=== PATIENT | female | born 1950 | race Caucasian/White ===

== ENCOUNTER 2019-02-27 06:06 | Inpatient (IN) | payer OTHER, SELFPAY ==
[2019-02-13 09:48] VITALS: BMI 23.3
[2019-02-27] VITALS (14 sets, daily range): BP systolic 86–152; BP diastolic 49–91; PULSE 68–92; RESP 12–18; TEMP 36.2–36.8; O2SAT 94–100; BMI 22.2
--- NOTE | 2019-02-27 06:00 | DI.RAD.S_ITS ---
PROCEDURE: XR PELVIS 1-2V INDICATIONS: post op right SIENNA TECHNIQUE: Single frontal view of the pelvis acquired. COMPARISON: [facility], CR, XR PELVIS WITH LATERAL HIP RIGHT, 01/24/2019, 10:29. FINDINGS: Bones: No fractures or dislocations. No suspicious bony lesions. Normal alignment immediately after right total hip arthroplasty. Soft tissues: Visualized bowel gas pattern is normal. No suspicious soft tissue calcifications. IMPRESSION: Normal alignment established after right total hip arthroplasty during surgical procedure earlier same day. Dictated by: Clyde Hernandez M.D. on 02/27/2019 at 11:03 Approved by: Clyde Hernandez M.D. on 02/27/2019 at 11:04
[2019-02-27] MEDS: ACETAMINOPHEN 325 MG TABLET 975 MG PO ×3 (06:48→20:53)
[2019-02-27] MEDS: PREGABALIN 75 MG CAPSULE PO (06:49)
[2019-02-27] MEDS: LACTATED RINGERS 1,000 ML 42 ML IV (07:00)
[2019-02-27] MEDS: CEFAZOLIN 1 GM VIAL IV (07:45)
--- NOTE | 2019-02-27 07:47 | PM.PREOP ---
Pre-operative Note Interval Note History & Physical reviewed/Exam performed by Physician: Yes Changes to H&P: No
--- NOTE | 2019-02-27 08:28 | SUR.OPER ---
Head on pillow. Supine on Angela table with both legs secured in traction leg positioners. Arms on padded arm boards with <90 abduction. Padded crotch post in place.
[2019-02-27] MEDS: ROPIVACAINE 0.5% PF 5 MG/ML 20ML AMP 60 ML INJ (08:35)
[2019-02-27] MEDS: MORPHINE 4 MG/ML INJ INJ (08:35)
[2019-02-27] MEDS: KETOROLAC 30 MG/ML VIAL IV (08:35)
[2019-02-27] MEDS: TRANEXAMIC ACID 1,000 MG VIAL 2000 MG INJ ×2 (08:37→09:30)
--- NOTE | 2019-02-27 08:43 | SUR.OPER ---
Patient's toes of both feet checked intermittently throughout surgery for capillary refill. Less than 1 second refill each time checked of both feet.
--- NOTE | 2019-02-27 10:01 | PM.OP.1 ---
Operative Date/Time/Diagnoses Date of procedure: 02/27/19 Time of procedure: 10:01 Pre-op diagnosis: Right hip degenerative joint disease Post-op diagnosis: same Procedure & Clinicians Procedure: Right total hip arthroplasty, direct anterior approach (CPT code 92472 with nursing assistants teacher) Same procedure as scheduled: Yes Indications: Patient is an 68-year-old female with severe right hip DJD. The patient has pain with activities and at rest, limited ambulation and activity tolerance, difficulties with ADLs, and failure of conservative treatment. We have discussed the nature of condition, treatment options, risks and benefits, and patient elects to proceed with total hip arthroplasty via direct anterior approach and gives informed consent. Surgeon: Robert Lin Ground Crew Supervisor: Janine Leo Anesthesia Type: General and Spinal Operative Notes Closure Type: primary Specimen(s): none sent Prosthetic devices, grafts, tissues, transplants, or devices: Acetabulum: Nails and Nephew R3 acetabular component size 52 mm Femoral component: Nails and Nephew Anthology stem size 8 with standard offset Femoral head: 36 mm + 4 Oxinium Estimated Blood Loss (mL): 250 Blood products transfused: none Procedure in detail: Patient brought to the operating room and after satisfactory induction of anesthetic and administration of IV antibiotics 1st dose of tranexamic acid was also administered intravenously. Patient placed supine on the [place] table with all bony prominences well padded and both feet secured in the ski boots. Right hip and lower extremity prepped and draped in the usual sterile fashion. Longitudinal incision created beginning just distal and lateral to the ASIS. This was carried sharply through the skin and subcutaneous tissues down to the fascia which was then divided longitudinally and the TFL muscle stripped off of the fascia and retracted posteriorly. Intermuscular gap then developed and a retractor placed over the superior capsule and a Gelpi retractor was placed distally. Circumflex vessels identified and cauterized. Then the pericapsular fat was removed. Capsulotomy was then performed in the anterior capsule was retracted anteriorly, lateral capsule was excised. Retractors then placed intracapsularly and femoral neck cut made according per preoperative templating using fluoroscopic guidance. Acetabular retractors were then placed an acetabular labrum and osteophytes were excised. Sequential reaming of the acetabulum was performed to 51 mm with an excellent circumferential ream and there was an excellent fit with the trial. Position and fit of the trial component was confirmed with fluoroscopic images and once determined satisfactory the trial was removed and a permanent 52 mm Nails and Nephew R3 acetabular component was selected inserted and impacted into position with position confirmed satisfactory on fluoroscopy. Permanent liner then inserted. The leg was then externally rotated extended and abducted. Retractors placed around the proximal femur and the lateral capsule was excised and a posterosuperior release was performed. Canal was entered with a box osteotome and sequential broaches. Position of the broaches was confirmed satisfactory with AP and lateral fluoroscopic images. Canal was broached to size 8 with an excellent and snug fit with the [address] so trial reduction performed with the 8 broach used a good leg length range of motion and stability characteristics, however on fluoroscopic images the leg appeared slightly short and there was slight anterior push-pull with the bone hook at about 60? of external rotation. Trial and broach were then removed and a size 8 Nails and Nephew anthology stem was selected inserted and impacted into position. Trial reduction with a +4 ball yielded excellent leg length confirmed fluoroscopically and there was excellent stability with anterior push-pull with the bone hook at 90? of external rotation. The trial ball was exchanged for a +436 mm Oxinium ball. The wound was irrigated and hip reduced. Final fluoroscopic images confirmed satisfactory and excellent placement of hardware leg length and stability was also checked with the bone hook which was excellent. The wound was irrigated and the fascia was closed with a running 1. Vicryl. Periarticular tissues were infiltrated with combination of ropivacaine, morphine and Toradol. Subcutaneous tissues closed with 3 O Vicryl and a running intracuticular locking stitch. Skin closed with skin adhesive and sterile dressings applied. Second dose of tranexamic acid was administered. Patient taken to postanesthetic recovery in satisfactory condition. Complications: none Condition: stable Disposition: PACU Plan for aftercare: Patient will be admitted to the acute care capellan, and anticipate discharge on postop day 1 with follow-up in office in 10-14 days. Outpatient physical therapy will be arranged and patient will increase activity as tolerated. Patient will continue use of postoperative Lovenox for 10 days postop.
[2019-02-27] MEDS: ONDANSETRON 4 MG/2 ML INJ IV ×2 (10:55→15:28)
[2019-02-27] MEDS: LACTATED RINGERS 1,000 ML 125 ML IV ×2 (10:55→19:17)
--- NOTE | 2019-02-27 11:27 | PC.NURSE ---
Addendum entered by Anca Gavin R.N. 02/27/19 14:27: pt with no further nausea- taking crackers and tea for c/o lightheadedness has declined PT X 1 due to this and will revisit later this afternoon- no void as of yet post-operative Original Note: RECEIVED PT FROM PACU - WITH SOME NAUSEA AND DRY HEAVES- 2 SMALL EMESIS OF MOSTLY MUCOUS-SPUTUM, MEDICATED WITH IV ZOFRAN WHICH HAS BEEN EFFECTIVE THUS FAR- ANTERIOR RIGHT HIP WITH AQUACELL DRESSING WHICH REMAINS C,D,I. SCD PLACED BILAT LOWER EXTREMITIES AND UPDATED SPOUSE AT BEDSIDE-
--- NOTE | 2019-02-27 13:09 | PT.IPTN ---
Current Diagnoses Unilateral primary osteoarthritis, right hip (02/27/19) Surgery Performed Operation Date: 02/27/19 07:45 Actual Procedures p Total Hip Athroplasty Anterior(Right) - Robert Lin MD Physical Therapy Treatment Note Notes RN requesting pt have another hour or so of rest before attempting mobilization.
--- NOTE | 2019-02-27 14:26 | PT.IPTN ---
Current Diagnoses Unilateral primary osteoarthritis, right hip (02/27/19) Surgery Performed Operation Date: 02/27/19 07:45 Actual Procedures p Total Hip Athroplasty Anterior(Right) - Robert Lin MD Physical Therapy Treatment Note Notes Pt just woke up but is feeling dizzy and nauseous. BP 107/64 in supine. Pt prefering to wait to mobilize. RN to get pt some crackers and tea. PT to check back.
[2019-02-27] MEDS: CEFAZOLIN 2 GM/100 ML FROZ.PIGGY IV (14:50)
[2019-02-27] MEDS: hydrOXYzine pamoate 25 MG CAPSULE PO (16:54)
--- NOTE | 2019-02-27 17:45 | PT.IIE ---
Current Diagnoses Unilateral primary osteoarthritis, right hip (02/27/19) Surgery Performed Operation Date: 02/27/19 07:45 Actual Procedures p Total Hip Athroplasty Anterior(Right) - Robert Lin MD Surgical History Status post hysterectomy Physical Therapy Inpatient Evaluation/Re-Eval M1 PT/OT-IP Prior Functional Status Start: 02/27/19 11:01 Freq: NEEDED Status: Active Protocol: Document 02/27/19 17:41 EA (Rec: 02/27/19 17:52 EA [id number]) Medical Review Prior Functional Status Medical History Reviewed Yes Diet/Fluid Consistency Regular Communication Normal Mobility and Gait Indep with the used of ST cane ; denies fall in the past 6 months Activities of Daily Living and IADL's Indep Social History Household Members spouse Living Arrangements House Number of Floors (Floors) One Floor Number of Stairs To Enter/Railing? 2 stes to go down to the main floor Home Equipment Front Wheel Walker Straight Cane Raised Toilet Seat w/Armrests Employment Status Retired Additional Social History Comment Lives with her on a single story house with steps to get in and down to the main floor. Pt BR is ~ 15-30 ft from the BR M2 PT-IP Current Condition Start: 02/27/19 11:01 Freq: NEEDED Status: Active Protocol: Document 02/27/19 17:41 EA (Rec: 02/27/19 17:52 EA [id number]) Physical Therapy Current Condition Current Condition Evaluation Date 02/27/19 Treatment Diagnosis s/P R SIENNA anterior approach Onset Date 02/27/19 Precautions Anterior Hip Precautions No Hip Extension No Hip External Rotation Weight Bearing Status Weight Bearing Status Weight Bear as Tolerated M3 PT-IP Subjective Start: 02/27/19 11:01 Freq: NEEDED Status: Active Protocol: Document 02/27/19 17:41 EA (Rec: 02/27/19 17:52 EA [id number]) Subjective Physical Therapy Visit Type Type Initial Evaluation Visit Start Time 16:55 Visit Stop Time 17:40 Total Visit Minutes 45 Physical Therapy Visit Comments Patient Comments Pt reports able to walk to the bathroom with nurses help; states ready for PT eval. Therapy Pain Assessment Pain When Pain Assessed At Rest Pain Present Pain Present Pain Reported Location Right Anterior Hip Intensity 3 Description Acute M4 PT-IP Mobility and Gait Start: 02/27/19 11:01 Freq: NEEDED Status: Active Protocol: Document 02/27/19 17:41 EA (Rec: 02/27/19 17:52 EA [id number]) PT-Bed Mobility Assessment Rolling Level of Assist Standby Assistance Supine to Sit Supine to Sit Contact Guard Assistance Sit to Supine Sit to Supine Standby Assistance Scooting Scooting to Edge of Bed Standby Assistance PT-Transfer Assessment Sit to and From Stand Sit to and from Stand Standby Assistance Equipment Transfer Assistive Device Gait Belt Front Wheeled Walker Transfers Transfer Destination Bed Chair Transfer Technique stepping Transfer Ability Level of Assist Standby Assistance Comments Mobility Comments Patient is nauseated post 15 ft amb; BP dropped from 111/65 to 99/38mmHg. BP back to normal after supine with leg elevated to 110/67. Nurse advised with abnormal findings. Gait Assessment Gait Gait Assistance Required: Standby Assistance Distance (Feet) 12 Able to Maintain Weight Bearing Status Yes During Gait Assistive Devices Assistive Device Gait Belt Front Wheeled Walker Gait Deviations General Gait Pattern Antalgic Step-to Gait Factors Limiting Gait Function Factors Limiting Gait Function Decreased Activity Tolerance Decreased Strength Pain PT-Balance Assessment Sitting Balance and Reactions Static Sitting Balance Ability Normal Dynamic Sitting Balance Ability Good Standing Balance and Reactions Static Standing Balance Ability Good Dynamic Standing Balance Ability Good M5 PT-IP Objective Assessments Start: 02/27/19 11:01 Freq: NEEDED Status: Active Protocol: Document 02/27/19 17:41 EA (Rec: 02/27/19 17:52 EA [id number]) Orientation Orientation/Cognition Level of Alertness Alert Orientation Name Age Month Language Function Ability No Deficits Noted Safety Awareness Understands Safety Issues Memory Description No Deficits Noted Gross Range of Motion Upper Extremity ROM Assessment Within Functional Limits Lower Extremity ROM Assessment Right Impaired Impairments Right hip N/A due to hip pre- caution but with at least WFL Strength Upper Extremity Strength Assessment Within Functional Limits Lower Extremity Strength Assessment Right Impaired Hip Not assessed due to pre- caution but with at least 3/5 Coordination Assessment Gross Coordination Gross Coordination WNL Assessment Finger to Nose Test Normal Performance Pronation/Supination Test Normal Performance Sensation Assessment Sensation Gross Sensation WNL Light Touch Intact Proprioception (Position) Intact M6 PT-IP Treatment Start: 02/27/19 11:01 Freq: NEEDED Status: Active Protocol: Document 02/27/19 17:41 EA (Rec: 02/27/19 17:52 EA [id number]) Physical Therapy Treatment Exercises Exercises Ankle Pumps Gluteal Sets Quad Sets Heel Slides Education Education Provided Precautions Weight Bearing Status Post-Op Packet Safety M7 PT-IP Assessment and Plan Start: 02/27/19 11:01 Freq: NEEDED Status: Active Protocol: Document 02/27/19 17:41 EA (Rec: 02/27/19 17:52 EA [id number]) PT Summary Assessment and Plan Potential Rehabilitation Potential Good Status of Condition at Evaluation Evolving Summary Impairments Pain ROM Strength Balance Assessment Summary Patient exhibits decreased tolerance to functional mobility due to right hip pain , decreased strength and generalized body fatigue with hypotension. Pt requires assistance at this time for safety. She should benefit with skilled PT prior to discharge to reach highest functional level. Pt demonstrates good potential for recovery. Goals Bed Mobility Goal Independent Transfer Goal Independent Gait Goal Independent Gait Distance 70 ft Other Goals Navigate 2 steps with rails for support Days to Meet Goals 1 Frequency of Treatment Frequency Of Treatment Twice a Day Treatment Plan Physical Therapy Treatment Plan Bed Mobility Training Transfer Training Gait Training Therapeutic Exercise Post Op Education Discharge Planning Neuromuscular Re-ed Other Recommendations and Next Treatment To practice 2 stes of stairs Focus Recommendations To Nursing Amount of Assist Needed 1 Person Assist Discharge Recommendations PT Discharge Recommendations Home with Assistance Outpatient PT
--- NOTE | 2019-02-27 21:29 | PC.NURSE ---
Received in bed, awake, alert, oriented. NAD. VSS. CMS intact on affected side. Dressing intact. IVF infusing per order. PIV intact. RA. Brief episodes of nausea, resolved with IV ondansetron and Vistaril. OOB and ambulated per PT, and later per DOCK BUILDER. Tolerated well. Taking p.o. later with no recurrence of nausea. Discussed plan of care and pain-management regimen.
[2019-02-28] VITALS (22 sets, daily range): BP systolic 74–111; BP diastolic 41–64; PULSE 85–99; RESP 16–18; TEMP 36.7–37.6; O2SAT 93–96
[2019-02-28] MEDS: CEFAZOLIN 2 GM/100 ML FROZ.PIGGY IV (00:17)
[2019-02-28] MEDS: OXYCODONE IR 5 MG TABLET PO ×3 (03:28→09:29)
[2019-02-28 05:01] LABS: Hemoglobin 9.1 g/dL (12.0-16.0)
[2019-02-28] MEDS: ONDANSETRON 4 MG/2 ML INJ IV (06:23)
--- NOTE | 2019-02-28 09:18 | P.DS_ITS ---
History of Present Illness Date Patient Seen: 02/28/19 Time Patient Seen: 09:15 Chief complaint: [id number] Narrative: Hospital day 2, postop day 1 following right anterior total hip arthroplasty by Dr. Lin. Patient remained stable postoperatively. Has been up out of bed a couple times to the bathroom. She did have 1 PT visit yesterday evening. Patient anticipates going home today. She lives on [place]. She is a [facility] patient and has postoperative pain medications at home. She is scheduled to go to [place] PT. Discharge Providers Date of admission: 02/27/19 06:06 Discharge Date: 02/28/19 Primary care physician: Henri Zambrano MD Consults: 02/27/19 10:45 Consult to Discharge Planning Routine Comment: Consult to Physical Therapy Evaluate & Treat Comment: Physician Instructions: post op SIENNA protocol Consult to Respiratory Therapy Evaluate & Treat Comment: Physician Instructions: Evaluate and treat Discharge provider: Corey Lui PA-C Summary Discharge Diagnosis: Status post right anterior total hip arthroplasty Hospital Course: Patient brought to hospital on 02/27/2019 for above-noted surgery. She remained stable postoperatively. Progressed with physical therapy. Ready for discharge home on postop day 1. Status at Discharge Cognitive/behavioral status at discharge: oriented Functional status at discharge: uses cane/walker Overall status at discharge: patient is progressing back to baseline Time Spent with Patient Less than 30 minutes Exam Vital Signs (past 8 hours): - 02/28/19 06:18 02/28/19 08:32 Temperature 99.7 F H Pulse Rate 87 90 Respiratory Rate 18 18 Blood Pressure 105/64 94/50 L Pulse Oximetry 96 96 Oxygen Delivery Method Room Air Oxygen Flow Rate 0 Narrative Exam Narrative: Alert, oriented no acute distress resting in bed. Legs. Aquacel dressing to right anterior hip is dry without drainage or inflammation. No calf pain or swelling. Pulses symmetrical. Objective Labs Result Diagrams: 02/28/19 04:35 Labs: Laboratory Results - last 24 hr 02/27/19 02/28/19 10:50 04:35 Hgb 9.1 L Hct 27.0 L Nasal Screen MRSA (PCR) Negative for mrsa Discharge Plan Discharge Plan Patient Disposition: Home Discharge comment: Discharged to home pending clearance by physical therapy. Patient is a [facility] patient and has postoperative pain medication for oxycodone and Vistaril at home. She needs instruction on Lovenox injection. Discharge Med Rec/Prescriptions Prescriptions: New enoxaparin [Lovenox] 40 mg/0.4 mL Syringe 40 mg subcut DAILY Qty: 9 RF: 0 Continued alendronate [Fosamax] 70 MG tablet 70 mg PO QWEEK Qty: 12 RF: 3 meloxicam 15 mg Tablet 15 mg PO DAILY RF: 0 Follow up/Referrals: Henri Zambrano MD [Primary Care Provider] - Provider Discharge Instructions Diet: Diet as Tolerated Activity: Ambulate as tolerated. Use walker as needed. Right anterior total hip arthroplasty protocol x6 weeks postop. Cold/Heat Therapy: Cold pack to right hip as needed. Skin/Wound/Dressing Care Report to your healthcare provider any signs of infection, such as:: chills, fever, night sweats, increased pain, unusual drainage and unusual redness Dressing: Keep Aquacel dressing in place until postop visit. Visit Report/Discharge Packet Instructions: DI for Hip Replacement Discharge Data Primary Care Provider: Henri Zambrano Attending Provider: Robert Lin Admit Date/Time: 02/27/19 06:06
[2019-02-28] MEDS: ACETAMINOPHEN 325 MG TABLET 975 MG PO ×3 (09:27→21:19)
[2019-02-28] MEDS: ENOXAPARIN 40 MG/0.4 ML SYRINGE SUBCUT (09:27)
--- NOTE | 2019-02-28 10:46 | PT.IPTN ---
Current Diagnoses Unilateral primary osteoarthritis, right hip (02/27/19) Surgery Performed Operation Date: 02/27/19 07:45 Actual Procedures p Total Hip Athroplasty Anterior(Right) - Robert Lin MD Physical Therapy Treatment Note M2 PT-IP Current Condition Start: 02/27/19 11:01 Freq: NEEDED Status: Active Protocol: Document 02/27/19 17:41 EA (Rec: 02/27/19 17:52 EA [id number]) Physical Therapy Current Condition Current Condition Evaluation Date 02/27/19 Treatment Diagnosis s/P R SIENNA anterior approach Onset Date 02/27/19 Precautions Anterior Hip Precautions No Hip Extension No Hip External Rotation Weight Bearing Status Weight Bearing Status Weight Bear as Tolerated M3 PT-IP Subjective Start: 02/27/19 11:01 Freq: NEEDED Status: Active Protocol: Document 02/28/19 09:30 CLB (Rec: 02/28/19 10:46 CLB [id number]) Subjective Physical Therapy Visit Type Type Treatment Note Visit Start Time 09:30 Visit Stop Time 09:55 Total Visit Minutes 25 Notes Pt willing to work with therapy. Number of OUTSIDE INSTALLER APPRENTICE Visits 1 Therapy Pain Assessment Pain When Pain Assessed During Mobility Pain Present Pain Present Pain Reported Location Right Anterior Hip Intensity 7 Scale Used Numeric (1 - 10) Pain Management Techniques Modification of Treatment Re-positioning Timing of Activity with Medications M4 PT-IP Mobility and Gait Start: 02/27/19 11:01 Freq: NEEDED Status: Active Protocol: Document 02/28/19 09:30 CLB (Rec: 02/28/19 10:46 CLB [id number]) PT-Bed Mobility Assessment Supine to Sit Supine to Sit Contact Guard Assistance Sit to Supine Sit to Supine Minimal Assistance Scooting Scooting to Edge of Bed Standby Assistance PT-Transfer Assessment Comments Mobility Comments BP in supine 91/46, BP in sitting 74/50 with dizziness and headache, Pt returned to supine BP 97/51 legs elevated. Gait Assessment Comments Gait Comments unable due to BP Stair Climbing Assessment Comments Stair Climbing Comments unable due to BP M5 PT-IP Objective Assessments Start: 02/27/19 11:01 Freq: NEEDED Status: Active Protocol: Document 02/27/19 17:41 EA (Rec: 02/27/19 17:52 EA [id number]) Orientation Orientation/Cognition Level of Alertness Alert Orientation Name Age Month Language Function Ability No Deficits Noted Safety Awareness Understands Safety Issues Memory Description No Deficits Noted Gross Range of Motion Upper Extremity ROM Assessment Within Functional Limits Lower Extremity ROM Assessment Right Impaired Impairments Right hip N/A due to hip pre- caution but with at least WFL Strength Upper Extremity Strength Assessment Within Functional Limits Lower Extremity Strength Assessment Right Impaired Hip Not assessed due to pre- caution but with at least 3/5 Coordination Assessment Gross Coordination Gross Coordination WNL Assessment Finger to Nose Test Normal Performance Pronation/Supination Test Normal Performance Sensation Assessment Sensation Gross Sensation WNL Light Touch Intact Proprioception (Position) Intact M6 PT-IP Treatment Start: 02/27/19 11:01 Freq: NEEDED Status: Active Protocol: Document 02/28/19 09:30 CLB (Rec: 02/28/19 10:46 CLB [id number]) Physical Therapy Treatment Exercises Exercises Ankle Pumps Gluteal Sets Quad Sets Heel Slides Education Education Provided Precautions Weight Bearing Status Post-Op Packet Safety M7 PT-IP Assessment and Plan Start: 02/27/19 11:01 Freq: NEEDED Status: Active Protocol: Document 02/28/19 09:30 CLB (Rec: 02/28/19 10:46 CLB [id number]) PT Summary Assessment and Plan Summary Impairments Pain ROM Strength Balance Assessment Summary Pt unable to ambulate due to drop in BP with c/o dizziness and headache. Pt recalled 1/2 anterior hip precautions. Goals Bed Mobility Goal Independent Transfer Goal Independent Gait Goal Independent Gait Distance 70 ft Other Goals Navigate 2 steps with rails for support Days to Meet Goals 1 Frequency of Treatment Frequency Of Treatment Twice a Day Treatment Plan Physical Therapy Treatment Plan Bed Mobility Training Transfer Training Gait Training Therapeutic Exercise Post Op Education Discharge Planning Neuromuscular Re-ed Other Recommendations and Next Treatment gait and stair training if Focus able. Recommendations To Nursing Amount of Assist Needed 1 Person Assist Discharge Recommendations PT Discharge Recommendations Home with Assistance Outpatient PT
[2019-02-28] MEDS: SODIUM CHLORIDE 0.9% 500 ML 1000 ML IV (11:35)
--- NOTE | 2019-02-28 11:51 | CM.DANOTE ---
DCP/Assessment: Reviewed chart. Patient is a 68yr old female admitted to [facility] for left SIENNA performed on 02-27-[address] Lin. PCP is Dr. Henri Zambrano. Primary payor is 1)[facility]. Met with patient and spouse/Henri at bedside explained CM/SW role. Patient reports that she plans to d/c home when medically stable. Patient reports that she has all needed DME. Patient resides with spouse on [address]. Patient plans to do outpatient therapy on [place]. Patient seen by therapy and cleared to d/c home. Spoke with RN whom reports that they are monitoring patient's blood pressure today. Unsure if she will d/c today or tomorrow. Patient requesting Priority [place] when discharged. RN aware. P: Home when medically stable. PANFILO Serra Discharge Planning/Care Management CM Discharge Assessment Start: 02/28/19 11:49 Freq: Status: Active Protocol: Document 02/28/19 11:49 KJS (Rec: 02/28/19 11:51 KJS [id number]) Discharge Planning Assessment Assigned Electrical Development Engineer PANFILO Serra Contact Information Henri Hawkins (spouse) Advance Directives? Yes History Provided By Patient Significant Other Medical Record Prior Living Arrangements House Household Members spouse Type of transporation used prior to Drives own vehicle admit Independent with ADL's Yes Is patient alert and oriented? Yes DME Already Rented / Owned Elevated Toilet Seat FWW / Walker Cane Patient/Family Preference OP PT Therapy Barriers to Discharge No Discharge Plan Home Transportation Arrangement Spouse to provide transport. Whiteboard Updated in Patient Room with Yes name and ext. # of Electrical Development Engineer Review Status In Process Next Review Type Continued Stay Review Pre-Anesthesia Assessment Start: 02/13/19 09:48 Freq: Status: Complete Protocol: Document 02/13/19 09:48 CAB (Rec: 02/13/19 10:25 CAB [id number]) Pre-Anesthesia Assessment PAC Comment Pre-op WBCs elevated 11.8 Patient Information Reviewed Via Phone Assessment Assessment Completed With Patient Diagnostic Results BMP/CMP CBC EKG Comment Outside labs/EKG scanned to record Primary Care Provider Sherine Thompson Seen Specialist in Last 12 Months Yes Specialist Seen Orthopedist Primary Language Albanian Waredresser Required No Height 160.02 cm Weight 59.874 kg Body Mass Index (BMI) 23.3 Hearing Ability Normal Visual Assist Magnifying Glass Dentition Type Teeth, Natural Present Barriers to Learning None Other Aids No Hx Anesthesia Reactions Yes: Extreme nausea, vomiting post-op Hx Family Anesthesia Reaction No Hx Malignant Hyperthermia No Hx Blood Transfusions Yes: r/t vaginal delivery w/ hemorrhage Hx Blood Transfusion Reaction No Anesthesia Review Requested No Welder No alcohol intake never Smoking Status Never smoker Substance Use Type does not use Pain Present Pain Reported Musculoskeletal Symptoms Abnormal Gait Difficulty Walking Joint Pain History of Falling (Recent or History of No ) Patient is completely paralyzed or No completely immobile Prosthesis or Orthotic Device Cane Mental Status Oriented to own ability Is patient on oxygen? No Does patient have DELGADO/SOB No Hx Sleep Apnea No Currently Taking a Beta Mele No Can You Climb a Flight of Stairs Without Yes SOB Hx Chest Pain No Hx SOB No Hx Syncope or Dizziness No Anti-Coagulant Therapy No Has a Assembler Fishing Floats No Cardiac Testing No Hx Pacemaker/ICD No Pacemaker Rep Required? No Cardiac Clearance Received Not Applicable Diet Type At Home Regular dysphagia No: Intermittent fasting Bladder Pattern Nocturia Urinary Catheter Present No Hx Urinary Self Catheterization No Diabetes No Patient No Lactating No Hx Drug Resistant Organism No Presence of External or Internal Medical No Devices Have you traveled outside the [facility] States in the last 30 days? Marital Status Lives With spouse Prior Living Arrangements House Number of Floors (Floors) One Floor Support System Spouse Does the Patient Have Assistance After Yes Surgery Patient Discharge Plan Description Return Home Comment Pt advised overnight length of stay per surgeon's office Feels Safe in Current Environment Yes Been Physically Hurt or Threatened By a No Person in Current Environment Do you have thoughts of harming yourself None or others? Are you currently considering suicide? No Do you have a plan to hurt yourself or No Plan others? Do You Have Any Spiritual Beliefs That No May Affect Your HC Choices? Do You Have Any Cultural Practices That No May Affect Your HC Choices? Spiritual Referral None Comment LDS Who Can We Speak to About Patient's Care Family, friends Identifying Code for Release of Patient Declines to issue Information Health Care Proxy/Next of Kin Henri () Health Care Proxy Emergency Contact Name Henri () Emergency Contact Advance Directives? No: Information mailed to patient Requested Patient Bring Advanced Yes Directives DOS Power of Pilot Plant Research Technician Yes Power of Pilot Plant Research Technician Name Henri () Power of Pilot Plant Research Technician PAC Instructions Do not shave/clip surgical site Durable medical equipment Medications to take/avoid Nasal antibiotic No ETOH/petroleum product on skin DOS NPO Post-op transportation Pre-surgical wash Sturdy shoes/comfortable clothes Do not bring valuables and remove jewelry
[2019-02-28 13:01] LABS: Hematocrit 25.4 % (36-46); Hemoglobin 8.5 g/dL (12.0-16.0)
--- NOTE | 2019-02-28 13:41 | PT.IPTN ---
Current Diagnoses Unilateral primary osteoarthritis, right hip (02/27/19) Surgery Performed Operation Date: 02/27/19 07:45 Actual Procedures p Total Hip Athroplasty Anterior(Right) - Robert Lin MD Physical Therapy Treatment Note M2 PT-IP Current Condition Start: 02/27/19 11:01 Freq: NEEDED Status: Active Protocol: Document 02/27/19 17:41 EA (Rec: 02/27/19 17:52 EA [id number]) Physical Therapy Current Condition Current Condition Evaluation Date 02/27/19 Treatment Diagnosis s/P R SIENNA anterior approach Onset Date 02/27/19 Precautions Anterior Hip Precautions No Hip Extension No Hip External Rotation Weight Bearing Status Weight Bearing Status Weight Bear as Tolerated M3 PT-IP Subjective Start: 02/27/19 11:01 Freq: NEEDED Status: Active Protocol: Document 02/28/19 13:40 CLB (Rec: 02/28/19 13:41 CLB [id number]) Subjective Physical Therapy Visit Type Type Patient Unavailable Notes Hold per RN due to low BP. Will check with pt in AM.
--- NOTE | 2019-02-28 14:04 | PC.NURSE ---
Addendum entered by Caren Wang R.N. 02/28/19 15:44: Orders received at 1430 to infuse 1L NS and to call back if hypotension persists. Original Note: Day Shift Note Pt with hypotension throughout shift ranging from 70s/40s to 80s/40s (see VS trends). Pt reporting dizziness, reena. with changes in position. Hu HERNANDEZ notified this AM and 500 ml NS bolus administered with BP increasing from SBP of 70s to SBP of 80s post administration although this effect was not long-lasting. Hu HERNANDEZ notified and stat H&H ordered. H&H result, continued hypotension (70s/40s); message left for on-call MD at Dr. Lin's office. Pt resting in bed, reports pain well-controlled. SBA to BSC without issue. Call light within reach, using appropriately to make needs known.
[2019-02-28] MEDS: SODIUM CHLORIDE 0.9% 1,000 ML 1000 ML IV (14:30)
[2019-02-28 19:24] LABS: Hematocrit 25.3 % (36-46); Hemoglobin 8.6 g/dL (12.0-16.0)
[2019-02-28] MEDS: SODIUM CHLORIDE 0.9% 1,000 ML 100 ML IV (21:24)
--- NOTE | 2019-02-28 22:06 | PC.NURSE ---
Received in bed, awake, alert, oriented. NAD. Monitor shows SR without ectopy. VSS, but episodes of symptomatic hypotension despite previous fluid boluses. Order obtained for continuous IVF administration and repeat H &H. R hand PIV d/c'd 2/2 infiltration. PIV started L wrist. Tolerated well. Current VS show MAP> 65. Bedrest this shift except for BSC. UO adequate. Lungs CTA, Sp02 > 90% on RA.
[2019-03-01] MEDS: OXYCODONE IR 5 MG TABLET PO ×3 (01:02→10:54)
[2019-03-01 01:26] VITALS: BP 124/66
[2019-03-01 03:28] VITALS: BP 140/74; PULSE 109; RESP 16; TEMP 36.6
[2019-03-01] MEDS: ONDANSETRON 4 MG ODT PO (04:58)
[2019-03-01 05:43] LABS: Hematocrit 26.7 % (36-46)
[2019-03-01] MEDS: SODIUM CHLORIDE 0.9% 1,000 ML 100 ML IV (05:53)
--- NOTE | 2019-03-01 06:47 | PC.NURSE ---
NOC Shift: POD #2 Right hip replacement resolving hypotension, SBP above 100 throughout shift. Pt denies dizziness while OOB and is now ambulating to the bathroom w/1PA and FWW. Remains on IVF's, taking po. Stable H&H this AM. Would like to go home today, needs to work more with PT. at bedside.
[2019-03-01 07:00] VITALS: BP 120/74; PULSE 94; RESP 16; TEMP 37.2; O2SAT 95
[2019-03-01] MEDS: ACETAMINOPHEN 325 MG TABLET 975 MG PO (08:11)
[2019-03-01] MEDS: ENOXAPARIN 40 MG/0.4 ML SYRINGE SUBCUT (08:12)
--- NOTE | 2019-03-01 09:35 | PT.IPTN ---
Current Diagnoses Unilateral primary osteoarthritis, right hip (02/27/19) Surgery Performed Operation Date: 02/27/19 07:45 Actual Procedures p Total Hip Athroplasty Anterior(Right) - Robert Lin MD Physical Therapy Treatment Note M2 PT-IP Current Condition Start: 02/27/19 11:01 Freq: NEEDED Status: Active Protocol: Document 02/27/19 17:41 EA (Rec: 02/27/19 17:52 EA [id number]) Physical Therapy Current Condition Current Condition Evaluation Date 02/27/19 Treatment Diagnosis s/P R SIENNA anterior approach Onset Date 02/27/19 Precautions Anterior Hip Precautions No Hip Extension No Hip External Rotation Weight Bearing Status Weight Bearing Status Weight Bear as Tolerated M3 PT-IP Subjective Start: 02/27/19 11:01 Freq: NEEDED Status: Active Protocol: Document 03/01/19 08:56 LJ (Rec: 03/01/19 09:35 LJ [id number]) Subjective Physical Therapy Visit Type Type Treatment Note Visit Start Time 08:56 Visit Stop Time 09:19 Total Visit Minutes 23 Physical Therapy Visit Comments Patient Comments Pt wanting to do what she has to do to go home today. Nursing reports pt BP is stable to participate with PT M4 PT-IP Mobility and Gait Start: 02/27/19 11:01 Freq: NEEDED Status: Active Protocol: Document 03/01/19 08:56 DNAICA (Rec: 03/01/19 09:35 LJ [id number]) PT-Transfer Assessment Sit to and From Stand Sit to and from Stand Standby Assistance Equipment Transfer Assistive Device Gait Belt Front Wheeled Walker Transfers Transfer Destination Chair Toilet Wheelchair Transfer Technique stepping Transfer Ability Level of Assist Standby Assistance Comments Mobility Comments Pt performed 4 sit<>stand from chair, toilet, and WC with SBA and adhereance to precautions and saffety awareness Gait Assessment Gait Gait Assistance Required: Standby Assistance Distance (Feet) 250 Able to Maintain Weight Bearing Status Yes During Gait Assistive Devices Assistive Device Gait Belt Front Wheeled Walker Gait Deviations General Gait Pattern Antalgic Step-to Gait Factors Limiting Gait Function Factors Limiting Gait Function Decreased Activity Tolerance Decreased Strength Pain Comments Gait Comments Pt ambulated from ICU to stairwell outside emergency entrance and partially back SBA. Exercising safety and steady gait. Stair Climbing Assessment Comments Stair Climbing Comments Pt ascended and descended hallway stairs x 4 with R railing assist and on left in ascent and in front of pt on descent M5 PT-IP Objective Assessments Start: 02/27/19 11:01 Freq: NEEDED Status: Active Protocol: Document 02/27/19 17:41 EA (Rec: 02/27/19 17:52 EA [id number]) Orientation Orientation/Cognition Level of Alertness Alert Orientation Name Age Month Language Function Ability No Deficits Noted Safety Awareness Understands Safety Issues Memory Description No Deficits Noted Gross Range of Motion Upper Extremity ROM Assessment Within Functional Limits Lower Extremity ROM Assessment Right Impaired Impairments Right hip N/A due to hip pre- caution but with at least WFL Strength Upper Extremity Strength Assessment Within Functional Limits Lower Extremity Strength Assessment Right Impaired Hip Not assessed due to pre- caution but with at least 3/5 Coordination Assessment Gross Coordination Gross Coordination WNL Assessment Finger to Nose Test Normal Performance Pronation/Supination Test Normal Performance Sensation Assessment Sensation Gross Sensation WNL Light Touch Intact Proprioception (Position) Intact M6 PT-IP Treatment Start: 02/27/19 11:01 Freq: NEEDED Status: Active Protocol: Document 02/28/19 09:30 CLB (Rec: 02/28/19 10:46 CLB [id number]) Physical Therapy Treatment Exercises Exercises Ankle Pumps Gluteal Sets Quad Sets Heel Slides Education Education Provided Precautions Weight Bearing Status Post-Op Packet Safety M7 PT-IP Assessment and Plan Start: 02/27/19 11:01 Freq: NEEDED Status: Active Protocol: Document 03/01/19 08:56 LJ (Rec: 03/01/19 09:35 LJ [id number]) PT Summary Assessment and Plan Potential Rehabilitation Potential Good Status of Condition at Evaluation Evolving Summary Impairments Pain ROM Strength Balance Assessment Summary Pt has cleared all necessary requirements to DC today Goals Bed Mobility Goal Independent Transfer Goal Independent Gait Goal Independent Gait Distance 70 ft Other Goals Navigate 2 steps with rails for support Days to Meet Goals 1 Frequency of Treatment Frequency Of Treatment Twice a Day Treatment Plan Physical Therapy Treatment Plan Bed Mobility Training Transfer Training Gait Training Therapeutic Exercise Post Op Education Discharge Planning Neuromuscular Re-ed Other Recommendations and Next Treatment gait and stair training if Focus able. Recommendations To Nursing Amount of Assist Needed Standby Assistance Discharge Recommendations PT Discharge Recommendations Home with Assistance Outpatient PT
--- NOTE | 2019-03-01 11:17 | PC.NURSE ---
Discharge Note Patient injected own Lovenox today and tomorrow, demonstrated good technique.
== END 2019-03-01 11:00 | disposition home or self-care (01) | DRG 470 ==
LOC: AC 06:41 → ICU 10:45
PROVIDERS: Orthopaedic Surgery Foot and Ankle Surgery; Physician Assistant; Admitting Provider Orthopaedic Surgery; PCP Family Medicine; Visit Provider Orthopaedic Surgery
PROC: 0SR902Z Replacement of Right Hip Joint with Metal on Polyethylene Synthetic Substitute, Open Approach (ICD-10-PCS; CPT 27130; principal; 2019-02-27 07:45)
DX: M16.11 Unilateral primary osteoarthritis, right hip (principal)
CPT/HCPCS: 36415; 72170; 76000; 85014; 85018; 87797; 97110; 97116; 97161; 97530; 97535; C1776; J0690; J1650; J1885; J2250; J2270; J2405; J2704; J2795; J3010

== ENCOUNTER → 2024-01-18 11:38 | Outpatient (CLI) | payer OTHER, SELFPAY ==
[2019-02-27 11:05] VITALS: BMI 22.2
[2024-01-18 12:44] LABS: BUN Creatinine Ratio 21.8 (6-22); Blood Urea Nitrogen 22 mg/dL (7-17); Calcium 9.3 mg/dL (8.4-10.2); Carbon Dioxide 26 mmol/L (22-32); Chloride 111 mmol/L (98-107); Estimated Glomerular Filt Rate 58 mL/min (>60); Glucose 80 mg/dL (80-110); HEMOLYSIS < 15 (0-50); Potassium 4.4 mmol/L (3.4-5.1); Sodium 140 mmol/L (137-145)
[2024-01-18 15:19] LABS: Vitamin D 25 Hydroxy (D3) 48.2 ng/mL (30.0-100.0)
== END ==
PROVIDERS: PCP Family Medicine; Referring Provider Family Medicine; Visit Provider Family Medicine
DX: M81.0 Age-related osteoporosis without current pathological fracture (principal)
CPT/HCPCS: 36415; 80048; 82306; 82310; 83970

== ENCOUNTER → 2025-02-28 15:22 | Outpatient (CLI) | payer OTHER, SELFPAY ==
[2019-02-27 11:05] VITALS: BMI 22.2
[2025-02-28 16:27] LABS: Alanine Aminotransferase 25 IU/L (<35); Albumin Globulin Ratio 1.6 (1.0-2.8); Alkaline Phosphatase 87 U/L (38-126); Aspartate Aminotransferase 33 IU/L (14-36); BUN Creatinine Ratio 25.8 (6-22); Bilirubin Total 0.3 mg/dL (0.2-1.3); Blood Urea Nitrogen 25 mg/dL (7-17); Calcium 9.5 mg/dL (8.4-10.2); Carbon Dioxide 25 mmol/L (22-32); Chloride 108 mmol/L (98-107); Estimated Glomerular Filt Rate > 60 mL/min (>60); Globulin 2.5 g/dL (1.7-4.1); Glucose 89 mg/dL (70-99); HEMOLYSIS < 15 (0-50); Potassium 4.6 mmol/L (3.4-5.1); Sodium 140 mmol/L (137-145); Total Protein 6.5 g/dL (6.3-8.2)
== END ==
PROVIDERS: PCP Family Medicine; Referring Provider Family Medicine; Visit Provider Family Medicine
DX: M81.0 Age-related osteoporosis without current pathological fracture (principal); R94.4 Abnormal results of kidney function studies
CPT/HCPCS: 36415; 80053